=== PATIENT | male | born 1955 | race Caucasian/White ===

== ENCOUNTER 2017-09-18 09:53 | Inpatient (IN) ==
[2017-09-18 10:58] LABS: Basophils # 0.1 10*3/uL (0.0-0.2); Basophils % 0.7 % (0.0-0.8); Eosinophils # 0.2 10*3/uL (0.0-0.87); Hematocrit 40.1 VOL% (42.0-52.0); Hemoglobin 14.2 GM/DL (14.0-18.0); Immature Granulocytes % 0.3 %; Immature Granulocytes Absolute 0.02 #; Lymphocytes # 1.7 10*3/uL (1.4-4.0); Lymphocytes % 22.6 % (21.2-54.2); Mean Corpuscular HGB Conc 35.4 GM/DL (32-36); Mean Corpuscular Hemoglobin 32 PG (27-34); Mean Corpuscular Volume 89.5 FL (87-102); Mean Platelet Volume 10.6 FL (9.6-12.0); Monocytes # 0.4 10*3/uL (0.11-0.8); Monocytes % 5.7 % (1.7-12.7); Neutrophils % 67.7 % (38.7-73.9); Platelet Count 151 T/CUMM (130-400); Red Blood Count 4.48 MC/CUMM (3.8-5.5); Red Cell Distribution Width 12.6 % (9.3-17.3); White Blood Count 7.4 T/CUMM (4-12)
[2017-09-18 11:04] LABS: Apearance,Urine CLEAR (Clear); Bilirubin,Urine Negative (Negative); Blood, Urine Negative (Negative); Glucose,Urine (UA) >=500 mg/dL (Negative); Ketones,Urine Negative (Negative); Nitrite,Urine Negative (Negative); Protein,Urine Negative; RBC,Urine <1 /HPF (0-4); Urine Color Yellow (Yellow); Urine Specific Gravity 1.032 (1.001-1.035); WBC,Urine 1 /HPF (0-6)
[2017-09-18 11:07] LABS: INR 1.1; PT Patient Result 11.1 SECS
[2017-09-18] MEDS ORDERED: FUROSEMIDE 40 MG/4 ML VIAL IV STA (11:34)
[2017-09-18 11:37] LABS: Albumin 3.6 G/DL (3.4-5.0); Calcium 8.7 MG/DL (8.5-10.1); Osmolality,Calculated 277.5 MOS/KG (273-304); Potassium 4.2 MMOL/L (3.5-5.1)
[2017-09-18] MEDS ORDERED: FUROSEMIDE 40 MG/4 ML VIAL ONE (13:11)
[2017-09-18] MEDS ORDERED: GLUCAGON 1 MG VIAL IM PRN (13:54)
[2017-09-18] MEDS ORDERED: DEXTROSE 50% 25 GM/50 ML VIAL IV PRN (13:54)
[2017-09-18] MEDS ORDERED: MAGNESIUM SULF RIDER 2 GM in PREMIX 1 EACH IV PRN (13:54)
[2017-09-18] MEDS ORDERED: MAGNESIUM SULF RIDER 4 GM in PREMIX 1 EACH IV PRN (13:54)
[2017-09-18] MEDS ORDERED: NICOTINE 21 MG/24 HR PATCH TRANSDERM PRN (13:54)
[2017-09-18] MEDS ORDERED: LORazepam 2 MG/1 ML VIAL IV ONE (14:35)
[2017-09-18] MEDS: CARVEDILOL 3.125 MG TABLET PO SCH ×2 (15:03→20:55)
[2017-09-18] MEDS: LISINOPRIL 5 MG TABLET PO SCH (15:04)
[2017-09-18] MEDS: ENOXAPARIN 100 MG/ML SYRINGE SUBCUT SCH (15:05)
[2017-09-18] MEDS: glipiZIDE 5 MG TABLET PO SCH (17:10)
[2017-09-18] MEDS: CLOPIDOGREL 75 MG TABLET PO SCH (17:10)
[2017-09-18] MEDS: FUROSEMIDE 40 MG/4 ML VIAL IV SCH (17:12)
[2017-09-18] MEDS: INSULIN LISPRO 100 UNIT/ML SUBCUT SCH ×2 (18:33→20:55)
[2017-09-18] MEDS: oxyCODONE/ACETAMINOPHEN 5-325 MG TABLET PO PRN (19:41)
[2017-09-18] MEDS: ZALEPLON 5 MG CAPSULE PO PRN (20:54)
[2017-09-18] MEDS ORDERED: CYCLOBENZAPRINE 10 MG TABLET PO PRN (23:41)
[2017-09-19] MEDS: oxyCODONE/ACETAMINOPHEN 5-325 MG TABLET PO PRN ×4 (01:47→23:48)
[2017-09-19 05:00] LABS: Basophils # 0.1 10*3/uL (0.0-0.2); Basophils % 0.8 % (0.0-0.8); Eosinophils # 0.3 10*3/uL (0.0-0.87); Eosinophils % 4.4 % (0.00-10.9); Hematocrit 39.4 VOL% (42.0-52.0); Hemoglobin 14.1 GM/DL (14.0-18.0); Immature Granulocytes % 0.3 %; Immature Granulocytes Absolute 0.02 #; Lymphocytes # 2.6 10*3/uL (1.4-4.0); Mean Corpuscular HGB Conc 35.8 GM/DL (32-36); Mean Corpuscular Hemoglobin 32 PG (27-34); Mean Corpuscular Volume 88.9 FL (87-102); Monocytes # 0.5 10*3/uL (0.11-0.8); Monocytes % 7.1 % (1.7-12.7); Neutrophils # 2.9 10*3/uL (1.4-7.4); Neutrophils % 46.4 % (38.7-73.9); Platelet Count 160 T/CUMM (130-400); Red Blood Count 4.43 MC/CUMM (3.8-5.5); Red Cell Distribution Width 12.4 % (9.3-17.3); White Blood Count 6.3 T/CUMM (4-12)
[2017-09-19 05:26] LABS: Osmolality,Calculated 271.2 MOS/KG (273-304); Potassium 3.5 MMOL/L (3.5-5.1)
[2017-09-19] MEDS: glipiZIDE 5 MG TABLET PO SCH ×2 (06:06→17:08)
[2017-09-19] MEDS: ENOXAPARIN 100 MG/ML SYRINGE SUBCUT SCH ×2 (06:07→18:10)
[2017-09-19] MEDS: INSULIN LISPRO 100 UNIT/ML SUBCUT SCH ×4 (08:48→20:29)
[2017-09-19] MEDS: CLOPIDOGREL 75 MG TABLET PO SCH (08:49)
[2017-09-19] MEDS: CARVEDILOL 3.125 MG TABLET PO SCH ×2 (08:49→20:21)
[2017-09-19] MEDS: FUROSEMIDE 40 MG/4 ML VIAL IV SCH ×2 (08:49→17:08)
[2017-09-19] MEDS: LISINOPRIL 5 MG TABLET PO SCH (08:49)
[2017-09-19] MEDS: buPROPion SR 150 MG TABLET PO SCH (10:44)
[2017-09-19] MEDS: fentaNYL 75 MCG/HR PATCH TRANSDERM SCH (11:47)
[2017-09-19] MEDS: ASPIRIN EC 81 MG TABLET PO SCH (11:53)
[2017-09-19] MEDS: ZALEPLON 5 MG CAPSULE PO PRN ×2 (20:29→21:38)
[2017-09-20] MEDS: ENOXAPARIN 100 MG/ML SYRINGE SUBCUT SCH (06:01)
[2017-09-20] MEDS: oxyCODONE/ACETAMINOPHEN 5-325 MG TABLET PO PRN ×2 (06:04→13:01)
[2017-09-20] MEDS: glipiZIDE 5 MG TABLET PO SCH (06:08)
[2017-09-20 06:40] LABS: Basophils # 0.1 10*3/uL (0.0-0.2); Basophils % 1.1 % (0.0-0.8); Eosinophils # 0.3 10*3/uL (0.0-0.87); Eosinophils % 5.6 % (0.00-10.9); Hematocrit 39.9 VOL% (42.0-52.0); Hemoglobin 14.3 GM/DL (14.0-18.0); Immature Granulocytes % 0.2 %; Immature Granulocytes Absolute 0.01 #; Lymphocytes # 2.7 10*3/uL (1.4-4.0); Lymphocytes % 49.3 % (21.2-54.2); Mean Corpuscular HGB Conc 35.8 GM/DL (32-36); Mean Corpuscular Hemoglobin 32 PG (27-34); Mean Corpuscular Volume 89.3 FL (87-102); Mean Platelet Volume 11.2 FL (9.6-12.0); Monocytes # 0.5 10*3/uL (0.11-0.8); Monocytes % 8.3 % (1.7-12.7); Neutrophils % 35.5 % (38.7-73.9); Platelet Count 162 T/CUMM (130-400); Red Blood Count 4.47 MC/CUMM (3.8-5.5); Red Cell Distribution Width 12.5 % (9.3-17.3); White Blood Count 5.5 T/CUMM (4-12)
[2017-09-20 07:13] LABS: Calcium 8.8 MG/DL (8.5-10.1); Osmolality,Calculated 273.1 MOS/KG (273-304); Potassium 3.6 MMOL/L (3.5-5.1)
[2017-09-20 07:17] LABS: Risk Ratio 4.3; VLDL CHOLESTEROL 33.2 MG/DL
[2017-09-20 07:42] LABS: Hypochromasia 1+
[2017-09-20] MEDS: CARVEDILOL 3.125 MG TABLET PO SCH (08:24)
[2017-09-20] MEDS: buPROPion SR 150 MG TABLET PO SCH (08:24)
[2017-09-20] MEDS: CLOPIDOGREL 75 MG TABLET PO SCH (08:24)
[2017-09-20] MEDS: LISINOPRIL 5 MG TABLET PO SCH (08:24)
[2017-09-20] MEDS: FUROSEMIDE 40 MG/4 ML VIAL IV SCH (08:25)
[2017-09-20] MEDS: ASPIRIN EC 81 MG TABLET PO SCH (08:25)
[2017-09-20] MEDS: INSULIN LISPRO 100 UNIT/ML SUBCUT SCH ×2 (08:25→11:54)
[2017-09-20] MEDS ORDERED: ATORVASTATIN 40 MG TABLET PO SCH (09:00)
[2017-09-20] MEDS: fentaNYL 75 MCG/HR PATCH TRANSDERM SCH (14:13)
[2017-09-20 15:19] VITALS: BP 104/74
[2017-09-20] MEDS ORDERED: buPROPion SR 150 MG TABLET PO SCH (21:00)
[2017-09-21] MEDS ORDERED: NICOTINE 21 MG/24 HR PATCH TRANSDERM SCH (09:00)
[2017-09-21] MEDS ORDERED: fentaNYL 75 MCG/HR PATCH TRANSDERM SCH (09:00)
== END 2017-09-20 14:19 | disposition home or self-care (01) | DRG 64 ==
LOC: EDBD → EDUNIT# → N.ED 09:53 → N.EDINP 11:57 → N.4E 13:39
PROVIDERS: ADMIT Hospitalist; ATTEND Hospitalist

== ENCOUNTER 2017-12-09 07:19 | Inpatient (IN) ==
[2017-12-05 11:06] LABS: Basophils % 0.5 % (0.0-0.8); Eosinophils # 0.1 10*3/uL (0.0-0.87); Eosinophils % 1.9 % (0.00-10.9); Hemoglobin 14.9 GM/DL (14.0-18.0); Immature Granulocytes % 0.3 %; Immature Granulocytes Absolute 0.02 #; Lymphocytes # 1.9 10*3/uL (1.4-4.0); Lymphocytes % 32.5 % (21.2-54.2); Mean Corpuscular HGB Conc 34.7 GM/DL (32-36); Mean Corpuscular Hemoglobin 31 PG (27-34); Mean Corpuscular Volume 88.8 FL (87-102); Mean Platelet Volume 10.6 FL (9.6-12.0); Monocytes # 0.3 10*3/uL (0.11-0.8); Monocytes % 5.6 % (1.7-12.7); Neutrophils # 3.4 10*3/uL (1.4-7.4); Neutrophils % 59.2 % (38.7-73.9); Platelet Count 139 T/CUMM (130-400); Red Blood Count 4.84 MC/CUMM (3.8-5.5); Red Cell Distribution Width 12.7 % (9.3-17.3); White Blood Count 5.8 T/CUMM (4-12)
[2017-12-05 11:42] LABS: Albumin 3.5 G/DL (3.4-5.0); Bilirubin,Total 0.7 MG/DL (0.2-1.0); Calcium 8.9 MG/DL (8.5-10.1); Osmolality,Calculated 284.5 MOS/KG (273-304); Potassium 4.2 MMOL/L (3.5-5.1); Total Protein 6.7 G/DL (6.4-8.3)
[~2017-12-09 07:19] MED LIST: VANCOMYCIN 1,000 MG VIAL ONE; ceFAZolin 1,000 MG VIAL ONE; ceFAZolin 1,000 MG in SYRINGE 1 EACH IV ONE
[2017-12-09] MEDS ORDERED: DIAZEPAM 5 MG TABLET PO ONE (08:13)
[2017-12-09] MEDS ORDERED: FAMOTIDINE 20 MG TABLET PO ONE (08:13)
[2017-12-09] MEDS ORDERED: LACTATED RINGERS 1,000 ML IV SCH (08:30)
[2017-12-09] MEDS ORDERED: DIAZEPAM 5 MG TABLET ONE (08:45)
[2017-12-09] MEDS ORDERED: FAMOTIDINE 20 MG TABLET ONE (08:45)
[2017-12-09] MEDS ORDERED: HEPARIN 5,000 UNIT/1 ML VIAL ONE (09:05)
[2017-12-09] MEDS ORDERED: VANCOMYCIN 1,000 MG VIAL ONE (09:06)
[2017-12-09] MEDS ORDERED: ceFAZolin 1,000 MG VIAL ONE (10:19)
[2017-12-09] MEDS ORDERED: NALOXONE 0.4 MG/ML VIAL IV PRN (13:23)
[2017-12-09] MEDS ORDERED: GLUCAGON 1 MG VIAL IM PRN (13:23)
[2017-12-09] MEDS ORDERED: HYDROmorphone 2 MG/1 ML VIAL IV PRN (13:23)
[2017-12-09] MEDS ORDERED: PROMETHAZINE 25 MG/1 ML VIAL IM PRN (13:23)
[2017-12-09] MEDS ORDERED: DEXTROSE 50% 25 GM/50 ML VIAL IV PRN (13:23)
[2017-12-09] MEDS ORDERED: ONDANSETRON 4 MG/2 ML VIAL IV PRN ×2 (13:23→14:14)
[2017-12-09] MEDS ORDERED: oxyCODONE/ACETAMINOPHEN 5-325 MG TABLET PO PRN (13:23)
[2017-12-09] MEDS ORDERED: NITROPRUSSIDE 100 MG in DEXTROSE 5% 250 ML IV SCH (13:30)
[2017-12-09] MEDS ORDERED: PHENYLEPHRINE DRIP 40 MG/250 ML PREMIX IV SCH (13:30)
[2017-12-09] MEDS ORDERED: ASPIRIN EC 81 MG TABLET PO SCH (13:30)
[2017-12-09] MEDS: HYDROmorphone 2 MG/1 ML VIAL IV PRN ×5 (13:45→23:10)
[2017-12-09] MEDS ORDERED: ePHEDrine 50 MG/ML AMP ONE (13:47)
[2017-12-09] MEDS ORDERED: PROPOFOL 200 MG/20 ML VIAL IV ONE (13:48)
[2017-12-09] MEDS ORDERED: SEVOFLURANE 1 UNIT/15 MINUTE INH ONE (13:48)
[2017-12-09] MEDS ORDERED: ONDANSETRON 4 MG/2 ML VIAL ONE ×2 (13:48)
[2017-12-09] MEDS ORDERED: ESMOLOL 100 MG/10 ML VIAL IV ONE (13:48)
[2017-12-09] MEDS ORDERED: fentaNYL 100 MCG/2 ML VIAL ONE (13:48)
[2017-12-09] MEDS ORDERED: HYDROmorphone 2 MG/1 ML VIAL ONE (13:48)
[2017-12-09] MEDS ORDERED: SUCCINYLCHOLINE 200 MG/10 ML VIAL ONE (13:49)
[2017-12-09] MEDS ORDERED: NEOSTIGMINE 10 MG/10 ML VIAL ONE (13:49)
[2017-12-09] MEDS ORDERED: GLYCOPYRROLATE 0.4 MG/2 ML VIAL ONE (13:49)
[2017-12-09] MEDS ORDERED: ETOMIDATE 40 MG/20 ML VIAL IV ONE (13:49)
[2017-12-09] MEDS ORDERED: PROTAMINE SULFATE 50 MG/5 ML VIAL IV ONE (13:49)
[2017-12-09] MEDS ORDERED: PHENYLEPHRINE DRIP 20 MG/250 ML PREMIX IV ONE (13:49)
[2017-12-09] MEDS ORDERED: NITROGLYCERIN DRIP 50 MG/250 ML BOTTLE IV ONE (13:49)
[2017-12-09] MEDS ORDERED: ROCURONIUM 100 MG/10 ML VIAL IV ONE (13:49)
[2017-12-09] MEDS: LACTATED RINGERS 1,000 ML IV SCH ×2 (15:35→23:20)
[2017-12-09] MEDS: ASPIRIN EC 81 MG TABLET PO SCH (15:41)
[2017-12-09] MEDS: GABAPENTIN 100 MG CAPSULE PO SCH ×2 (15:42→20:14)
[2017-12-09] MEDS ORDERED: ISOSORBIDE MONONITRATE 30 MG TABLET PO SCH (21:00)
[2017-12-10] MEDS: HYDROmorphone 2 MG/1 ML VIAL IV PRN (02:18)
[2017-12-10] MEDS: oxyCODONE/ACETAMINOPHEN 5-325 MG TABLET PO PRN ×2 (06:21→14:03)
[2017-12-10] MEDS: GABAPENTIN 100 MG CAPSULE PO SCH (08:32)
[2017-12-10] MEDS: ASPIRIN EC 81 MG TABLET PO SCH (08:32)
[2017-12-10] MEDS ORDERED: ATORVASTATIN 40 MG TABLET PO SCH (09:00)
[2017-12-10] MEDS ORDERED: CLOPIDOGREL 75 MG TABLET PO SCH ×2 (09:00)
[2017-12-10] MEDS ORDERED: FUROSEMIDE 40 MG TABLET PO SCH (09:00)
[2017-12-10] MEDS ORDERED: POTASSIUM CHLORIDE 20 MEQ TABLET PO SCH (09:00)
[2017-12-10 10:58] VITALS: BP 114/69
[2017-12-10] MEDS ORDERED: fentaNYL 75 MCG/HR PATCH TRANSDERM SCH (11:16)
[2017-12-10] MEDS ORDERED: INSULIN REGULAR 100 UNIT/ML SUBCUT SCH ×2 (11:30→12:00)
[2017-12-10] MEDS ORDERED: INSULIN GLARGINE 100 UNIT/ML SUBCUT SCH (21:00)
[2017-12-11] MEDS ORDERED: glipiZIDE 5 MG TABLET PO SCH ×2 (07:30)
== END 2017-12-10 15:40 | disposition home or self-care (01) | DRG 39 ==
LOC: N.SDSINP 07:19 → N.CC 13:56 → N.3E 12-10 10:15
PROVIDERS: ADMIT Surgery; ATTEND Surgery

== ENCOUNTER 2018-01-20 07:20 | Inpatient (IN) ==
[2018-01-16 11:11] LABS: Calcium 8.8 MG/DL (8.5-10.1); Osmolality,Calculated 275.2 MOS/KG (273-304)
[~2018-01-20 07:20] MED LIST changes: +LACTATED RINGERS 1,000 ML IV SCH; -VANCOMYCIN 1,000 MG VIAL ONE
[2018-01-20] MEDS ORDERED: HEPARIN 5,000 UNIT/1 ML VIAL ONE (07:54)
[2018-01-20] MEDS ORDERED: ALBUTEROL/IPRATROPIUM 3 ML NEB RESP TX ONE ×3 (08:39→11:07)
[2018-01-20] MEDS ORDERED: oxyCODONE/ACETAMINOPHEN 5-325 MG TABLET PO PRN ×2 (10:52)
[2018-01-20] MEDS ORDERED: NALOXONE 0.4 MG/ML VIAL IV PRN (10:52)
[2018-01-20] MEDS ORDERED: PROMETHAZINE 25 MG/1 ML VIAL IM PRN (10:52)
[2018-01-20] MEDS ORDERED: ONDANSETRON 4 MG/2 ML VIAL IV PRN ×2 (10:52→11:07)
[2018-01-20] MEDS ORDERED: NITROPRUSSIDE 100 MG in DEXTROSE 5% 250 ML IV SCH (11:00)
[2018-01-20] MEDS ORDERED: PHENYLEPHRINE DRIP 40 MG/250 ML PREMIX IV SCH (11:00)
[2018-01-20] MEDS: HYDROmorphone 2 MG/1 ML VIAL IV PRN ×8 (11:10→22:30)
[2018-01-20] MEDS ORDERED: SEVOFLURANE 1 UNIT/15 MINUTE INH ONE (11:18)
[2018-01-20] MEDS ORDERED: fentaNYL 100 MCG/2 ML VIAL ONE ×2 (11:18)
[2018-01-20] MEDS ORDERED: PROPOFOL 200 MG/20 ML VIAL IV ONE (11:18)
[2018-01-20] MEDS ORDERED: FUROSEMIDE 20 MG/2 ML VIAL ONE (11:19)
[2018-01-20] MEDS ORDERED: PHENYLEPHRINE 10 MG/1 ML VIAL IV ONE (11:19)
[2018-01-20] MEDS ORDERED: PROTAMINE SULFATE 50 MG/5 ML VIAL IV ONE (11:19)
[2018-01-20] MEDS ORDERED: ETOMIDATE 40 MG/20 ML VIAL IV ONE (11:19)
[2018-01-20] MEDS ORDERED: GLYCOPYRROLATE 0.4 MG/2 ML VIAL ONE (11:19)
[2018-01-20] MEDS ORDERED: NITROGLYCERIN DRIP 50 MG/250 ML BOTTLE IV ONE (11:19)
[2018-01-20] MEDS ORDERED: SUCCINYLCHOLINE 200 MG/10 ML VIAL ONE (11:19)
[2018-01-20] MEDS ORDERED: NEOSTIGMINE 10 MG/10 ML VIAL ONE (11:19)
[2018-01-20] MEDS ORDERED: ROCURONIUM 100 MG/10 ML VIAL IV ONE (11:19)
[2018-01-20] MEDS ORDERED: METOPROLOL TARTRATE 5 MG/5 ML VIAL IV ONE (11:19)
[2018-01-20] MEDS ORDERED: SODIUM CHLORIDE 0.9% 100 ML IV ONE (11:20)
[2018-01-20] MEDS ORDERED: LACTATED RINGERS 1,000 ML IV ONE (11:20)
[2018-01-20] MEDS ORDERED: CLOPIDOGREL 75 MG TABLET PO SCH (12:00)
[2018-01-20] MEDS ORDERED: ASPIRIN EC 81 MG TABLET PO SCH (12:00)
[2018-01-20] MEDS: LACTATED RINGERS 1,000 ML IV SCH ×2 (12:02→23:38)
[2018-01-20] MEDS ORDERED: INSULIN REGULAR 100 UNIT/ML ONE (14:42)
[2018-01-20] MEDS: INSULIN REGULAR 100 UNIT/ML SUBCUT SCH ×3 (14:46→23:37)
[2018-01-21] MEDS: INSULIN REGULAR 100 UNIT/ML SUBCUT SCH ×2 (07:35→11:47)
[2018-01-21] MEDS: HYDROmorphone 2 MG/1 ML VIAL IV PRN (07:35)
[2018-01-21] MEDS ORDERED: fentaNYL 75 MCG/HR PATCH TRANSDERM SCH (09:00)
[2018-01-21] MEDS ORDERED: GABAPENTIN 100 MG CAPSULE PO SCH (09:00)
[2018-01-21] MEDS ORDERED: POTASSIUM CHLORIDE 20 MEQ TABLET PO SCH (09:00)
[2018-01-21] MEDS ORDERED: CLOPIDOGREL 75 MG TABLET PO SCH (09:00)
[2018-01-21] MEDS ORDERED: FUROSEMIDE 40 MG TABLET PO SCH (09:00)
[2018-01-21] MEDS ORDERED: ASPIRIN EC 81 MG TABLET PO SCH (09:00)
[2018-01-21] MEDS ORDERED: ATORVASTATIN 40 MG TABLET PO SCH (09:00)
[2018-01-21] MEDS: oxyCODONE/ACETAMINOPHEN 5-325 MG TABLET PO SCH ×2 (09:25→18:11)
[2018-01-21] MEDS: LACTATED RINGERS 1,000 ML IV SCH (09:34)
[2018-01-21 11:22] VITALS: BP 112/65
[2018-01-21] MEDS ORDERED: INSULIN REGULAR 100 UNIT/ML SUBCUT SCH (12:00)
[2018-01-21] MEDS ORDERED: LISINOPRIL 5 MG TABLET PO SCH (21:00)
[2018-01-21] MEDS ORDERED: INSULIN GLARGINE 100 UNIT/ML SUBCUT SCH (21:00)
[2018-01-21] MEDS ORDERED: ISOSORBIDE MONONITRATE 30 MG TABLET PO SCH (21:00)
== END 2018-01-21 14:02 | disposition home or self-care (01) | DRG 39 ==
LOC: N.SDSINP 07:20 → N.ICU 11:53 → N.3E 01-21 10:16
PROVIDERS: ADMIT Surgery; ATTEND Surgery

== ENCOUNTER 2018-01-31 08:18 | Inpatient (IN) ==
[2018-01-31] MEDS ORDERED: ACETAMINOPHEN 325 MG TABLET PO PRN (09:35)
[2018-01-31] MEDS ORDERED: LACTULOSE 20 GM/30 ML UDCUP PO PRN (09:35)
[2018-01-31] MEDS ORDERED: MAGNESIUM SULF RIDER 2 GM in PREMIX 1 EACH IV PRN (09:35)
[2018-01-31] MEDS ORDERED: MAGNESIUM SULF RIDER 4 GM in PREMIX 1 EACH IV PRN (09:35)
[2018-01-31] MEDS ORDERED: INFLUENZA VIRUS VACCINE 0.5 ML SYRINGE IM ONE (11:19)
[2018-01-31] MEDS ORDERED: PNEUMOCOCCAL VACCINE (23 VALENT) 0.5 ML VIAL IM ONE (11:19)
[2018-01-31] MEDS ORDERED: MEPERIDINE 25 MG/1 ML VIAL IV ONE (11:21)
[2018-01-31 11:53] LABS: CKMB % 8.4 %
[2018-01-31 11:56] LABS: Troponin I Only 5.95 NG/ML (0.00-0.045)
[2018-01-31] MEDS ORDERED: ASPIRIN 325 MG TABLET ONE (13:10)
[2018-01-31] MEDS ORDERED: ASPIRIN 325 MG TABLET PO ONE (13:27)
[2018-01-31] MEDS ORDERED: AMIODARONE 200 MG TABLET PO SCH (13:30)
[2018-01-31] MEDS: PANTOPRAZOLE 40 MG TABLET PO SCH (13:42)
[2018-01-31] MEDS: GABAPENTIN 100 MG CAPSULE PO SCH ×2 (15:55→20:35)
[2018-01-31] MEDS ORDERED: oxyCODONE/ACETAMINOPHEN 5-325 MG TABLET PO SCH (17:00)
[2018-01-31 17:53] LABS: CKMB % 6.2 %; Troponin I Only 4.44 NG/ML (0.00-0.045)
[2018-01-31] MEDS: INSULIN REGULAR 100 UNIT/ML SUBCUT SCH (18:18)
[2018-01-31] MEDS: oxyCODONE/ACETAMINOPHEN 5-325 MG TABLET PO PRN (19:43)
[2018-01-31] MEDS: fentaNYL 75 MCG/HR PATCH TRANSDERM SCH (20:33)
[2018-01-31] MEDS: INSULIN GLARGINE 100 UNIT/ML SUBCUT SCH (20:36)
[2018-01-31] MEDS: AMIODARONE 200 MG TABLET PO SCH (20:36)
[2018-01-31] MEDS ORDERED: ENOXAPARIN 40 MG/0.4 ML SYRINGE SUBCUT ONE (21:00)
[2018-02-01 03:08] LABS: CKMB % 4.7 %
[2018-02-01 03:09] LABS: Troponin I Only 2.84 NG/ML (0.00-0.045)
[2018-02-01 08:53] LABS: Basophils % 0.6 % (0.0-0.8); Eosinophils # 0.2 10*3/uL (0.0-0.87); Eosinophils % 3.5 % (0.00-10.9); Hematocrit 37.5 VOL% (42.0-52.0); Hemoglobin 12.4 GM/DL (14.0-18.0); Immature Granulocytes % 0.6 %; Immature Granulocytes Absolute 0.04 #; Lymphocytes % 32.3 % (21.2-54.2); Mean Corpuscular HGB Conc 33.1 GM/DL (32-36); Mean Corpuscular Hemoglobin 31 PG (27-34); Mean Corpuscular Volume 93.1 FL (87-102); Mean Platelet Volume 10.1 FL (9.6-12.0); Monocytes # 0.4 10*3/uL (0.11-0.8); Monocytes % 5.7 % (1.7-12.7); Neutrophils # 3.6 10*3/uL (1.4-7.4); Neutrophils % 57.3 % (38.7-73.9); Platelet Count 149 T/CUMM (130-400); Red Blood Count 4.03 MC/CUMM (3.8-5.5); Red Cell Distribution Width 13.3 % (9.3-17.3); White Blood Count 6.3 T/CUMM (4-12)
[2018-02-01] MEDS: POTASSIUM CHLORIDE 20 MEQ TABLET PO SCH (09:07)
[2018-02-01] MEDS: ASPIRIN EC 81 MG TABLET PO SCH (09:07)
[2018-02-01] MEDS: PANTOPRAZOLE 40 MG TABLET PO SCH (09:07)
[2018-02-01] MEDS: GABAPENTIN 100 MG CAPSULE PO SCH (09:07)
[2018-02-01] MEDS: FUROSEMIDE 40 MG TABLET PO SCH (09:08)
[2018-02-01] MEDS: INSULIN REGULAR 100 UNIT/ML SUBCUT SCH ×3 (09:08→18:06)
[2018-02-01] MEDS: CLOPIDOGREL 75 MG TABLET PO SCH (09:08)
[2018-02-01] MEDS: ATORVASTATIN 40 MG TABLET PO SCH (09:08)
[2018-02-01] MEDS: oxyCODONE/ACETAMINOPHEN 5-325 MG TABLET PO PRN (09:12)
[2018-02-01 09:13] LABS: Calcium 8.5 MG/DL (8.5-10.1); Osmolality,Calculated 274.1 MOS/KG (273-304); Potassium 4.5 MMOL/L (3.5-5.1)
[2018-02-01] MEDS: AMIODARONE 200 MG TABLET PO SCH ×2 (12:53→21:28)
[2018-02-01] MEDS: GABAPENTIN 300 MG CAPSULE PO SCH ×2 (12:55→21:29)
[2018-02-01] MEDS ORDERED: diphenhydrAMINE CAP 25 MG CAPSULE PO ONE (16:29)
[2018-02-01] MEDS ORDERED: MAGNESIUM SULF RIDER 2 GM in PREMIX 1 EACH IV PRN (16:29)
[2018-02-01] MEDS ORDERED: POTASSIUM CHLORIDE RIDER 10 MEQ in PREMIX 1 EACH IV PRN (16:29)
[2018-02-01] MEDS ORDERED: DIAZEPAM 5 MG TABLET PO ONE (16:29)
[2018-02-01] MEDS ORDERED: ENOXAPARIN 80 MG/0.8 ML SYRINGE SUBCUT SCH (16:30)
[2018-02-01] MEDS: INSULIN GLARGINE 100 UNIT/ML SUBCUT SCH (21:29)
[2018-02-01] MEDS: LISINOPRIL 5 MG TABLET PO SCH (21:29)
[2018-02-01] MEDS: ISOSORBIDE MONONITRATE 30 MG TABLET PO SCH (21:29)
[2018-02-01] MEDS: ENOXAPARIN 80 MG/0.8 ML SYRINGE SUBCUT SCH (21:29)
[2018-02-01] MEDS: ZALEPLON 5 MG CAPSULE PO PRN (21:41)
[2018-02-01] MEDS ORDERED: SODIUM CHLORIDE 0.9% 1,000 ML IV SCH (22:00)
[2018-02-02 05:00] LABS: Basophils # 0.1 10*3/uL (0.0-0.2); Basophils % 0.8 % (0.0-0.8); Eosinophils # 0.3 10*3/uL (0.0-0.87); Eosinophils % 5.2 % (0.00-10.9); Hematocrit 36.8 VOL% (42.0-52.0); Hemoglobin 12.1 GM/DL (14.0-18.0); Immature Granulocytes % 0.2 %; Immature Granulocytes Absolute 0.01 #; Mean Corpuscular HGB Conc 32.9 GM/DL (32-36); Mean Corpuscular Hemoglobin 31 PG (27-34); Mean Corpuscular Volume 93.2 FL (87-102); Monocytes # 0.4 10*3/uL (0.11-0.8); Monocytes % 6.7 % (1.7-12.7); Neutrophils # 3.4 10*3/uL (1.4-7.4); Neutrophils % 55.1 % (38.7-73.9); Platelet Count 151 T/CUMM (130-400); Red Blood Count 3.95 MC/CUMM (3.8-5.5); Red Cell Distribution Width 13.3 % (9.3-17.3); White Blood Count 6.1 T/CUMM (4-12)
[2018-02-02] MEDS ORDERED: diphenhydrAMINE CAP 25 MG CAPSULE PO ONE (05:30)
[2018-02-02] MEDS ORDERED: DIAZEPAM 5 MG TABLET PO ONE (05:30)
[2018-02-02 06:12] LABS: Calcium 8.2 MG/DL (8.5-10.1); Osmolality,Calculated 277.7 MOS/KG (273-304); Potassium 4.6 MMOL/L (3.5-5.1)
[2018-02-02] MEDS: CLOPIDOGREL 75 MG TABLET PO SCH ×2 (07:10→10:24)
[2018-02-02] MEDS: ASPIRIN EC 81 MG TABLET PO SCH ×2 (07:10→10:24)
[2018-02-02] MEDS: AMIODARONE 200 MG TABLET PO SCH ×3 (07:10→20:43)
[2018-02-02] MEDS ORDERED: LIDOCAINE 1% 20 ML VIAL ONE (07:26)
[2018-02-02] MEDS ORDERED: MEPERIDINE 25 MG/1 ML VIAL ONE ×2 (07:35→07:45)
[2018-02-02] MEDS ORDERED: MIDAZOLAM 2 MG/2 ML VIAL ONE (07:35)
[2018-02-02] MEDS ORDERED: HEPARIN 5,000 UNIT/1 ML VIAL ONE (08:04)
[2018-02-02] MEDS: POTASSIUM CHLORIDE 20 MEQ TABLET PO SCH (10:24)
[2018-02-02] MEDS: GABAPENTIN 300 MG CAPSULE PO SCH ×2 (10:24→20:43)
[2018-02-02] MEDS: ATORVASTATIN 40 MG TABLET PO SCH (10:24)
[2018-02-02] MEDS: FUROSEMIDE 40 MG TABLET PO SCH (10:24)
[2018-02-02] MEDS: PANTOPRAZOLE 40 MG TABLET PO SCH (10:24)
[2018-02-02] MEDS: INSULIN REGULAR 100 UNIT/ML SUBCUT SCH ×3 (11:46→16:43)
[2018-02-02] MEDS: ENOXAPARIN 80 MG/0.8 ML SYRINGE SUBCUT SCH (11:47)
[2018-02-02] MEDS: fentaNYL 75 MCG/HR PATCH TRANSDERM SCH (14:58)
[2018-02-02] MEDS: ISOSORBIDE MONONITRATE 30 MG TABLET PO SCH (20:43)
[2018-02-02] MEDS: LISINOPRIL 5 MG TABLET PO SCH (20:43)
[2018-02-02] MEDS: INSULIN GLARGINE 100 UNIT/ML SUBCUT SCH (20:43)
[2018-02-02] MEDS: ZALEPLON 5 MG CAPSULE PO PRN (20:48)
[2018-02-03 05:05] LABS: Basophils % 0.3 % (0.0-0.8); Eosinophils # 0.4 10*3/uL (0.0-0.87); Eosinophils % 7.2 % (0.00-10.9); Hematocrit 34.6 VOL% (42.0-52.0); Hemoglobin 11.9 GM/DL (14.0-18.0); Immature Granulocytes % 0.2 %; Immature Granulocytes Absolute 0.01 #; Lymphocytes # 1.9 10*3/uL (1.4-4.0); Lymphocytes % 30.3 % (21.2-54.2); Mean Corpuscular HGB Conc 34.4 GM/DL (32-36); Mean Corpuscular Hemoglobin 31 PG (27-34); Mean Corpuscular Volume 90.8 FL (87-102); Mean Platelet Volume 10.4 FL (9.6-12.0); Monocytes # 0.5 10*3/uL (0.11-0.8); Monocytes % 7.3 % (1.7-12.7); Neutrophils # 3.4 10*3/uL (1.4-7.4); Neutrophils % 54.7 % (38.7-73.9); Platelet Count 155 T/CUMM (130-400); Red Blood Count 3.81 MC/CUMM (3.8-5.5); Red Cell Distribution Width 13.4 % (9.3-17.3); White Blood Count 6.1 T/CUMM (4-12)
[2018-02-03 05:38] LABS: Calcium 8.5 MG/DL (8.5-10.1); Osmolality,Calculated 273.8 MOS/KG (273-304); Potassium 4.4 MMOL/L (3.5-5.1)
[2018-02-03] MEDS: INSULIN REGULAR 100 UNIT/ML SUBCUT SCH ×2 (09:10→12:03)
[2018-02-03] MEDS: PANTOPRAZOLE 40 MG TABLET PO SCH (09:11)
[2018-02-03] MEDS: POTASSIUM CHLORIDE 20 MEQ TABLET PO SCH (09:11)
[2018-02-03] MEDS: CLOPIDOGREL 75 MG TABLET PO SCH (09:11)
[2018-02-03] MEDS: ATORVASTATIN 40 MG TABLET PO SCH (09:11)
[2018-02-03] MEDS: ASPIRIN EC 81 MG TABLET PO SCH (09:11)
[2018-02-03] MEDS: GABAPENTIN 300 MG CAPSULE PO SCH (09:11)
[2018-02-03] MEDS: AMIODARONE 200 MG TABLET PO SCH (09:11)
[2018-02-03] MEDS: FUROSEMIDE 40 MG TABLET PO SCH (09:11)
[2018-02-03 11:50] VITALS: BP 113/69
[2018-02-03] MEDS ORDERED: PNEUMOCOCCAL VACCINE (23 VALENT) 0.5 ML VIAL IM ONE (16:00)
== END 2018-02-03 16:38 | disposition home or self-care (01) | DRG 281 ==
LOC: N.TELEN 10:09
PROVIDERS: ADMIT Internal Medicine Cardiovascular Disease; ATTEND Internal Medicine Cardiovascular Disease